=== PATIENT | female | born 1980 | race Caucasian/White ===

== ENCOUNTER → 2019-11-06 10:27 | Outpatient (CLI) | payer OTHER, SELFPAY ==
--- NOTE | ~2019-11-06 | MM_ITS ---
EXAMINATION: MM screening [facility] w noam HISTORY: Screening mammogram TECHNIQUE: Craniocaudal and mediolateral oblique 3-D tomosynthesis images were obtained and synthetic 2-D images were generated. CAD analysis was submitted and interpreted. COMPARISON: 11/01/2018 BREAST PARENCHYMAL COMPOSITION: There are scattered areas of fibroglandular density. FINDINGS: There is no evidence of suspicious mass, calcification, or architectural distortion to sugg est malignancy in either breast. There has been no suspicious interval change. IMPRESSION: 1. No mammographic evidence of malignancy. 2. Recommend routine screening mammography in one year. BI-RADS Category 1: Negative Reviewed, dictated and finalized at location A.
== END ==
PROVIDERS: PCP Internal Medicine; Visit Provider Obstetrics & Gynecology Gynecology
DX: Z12.31 Encounter for screening mammogram for malignant neoplasm of breast (principal)
CPT/HCPCS: 77063; 77067

== ENCOUNTER → 2021-01-03 16:20 | Outpatient (CLI) | payer OTHER, SELFPAY ==
--- NOTE | ~2021-01-03 | MM_ITS ---
EXAMINATION: MM screening [facility] w noam HISTORY: Screening mammogram TECHNIQUE: Craniocaudal and mediolateral oblique 3-D tomosynthesis images were obtained and synthetic 2-D images were generated. CAD analysis was submitted and interpreted. COMPARISON: , 11/01/2018 bilateral digital screening mammogram examinations BREAST PARENCHYMAL COMPOSITION: There are scattered areas of fibroglandular density. FINDINGS: There is no evidence of suspicious mass, calcification, or architectural distortion to sugg est malignancy in either breast. There has been no suspicious interval change. IMPRESSION: 1. No mammographic evidence of malignancy. 2. Recommend routine screening mammography in one year. BI-RADS Category 1: Negative Reviewed, dictated and finalized at location A.
== END ==
PROVIDERS: Visit Provider Obstetrics & Gynecology Gynecology
DX: Z12.31 Encounter for screening mammogram for malignant neoplasm of breast (principal)
CPT/HCPCS: 77063; 77067

== ENCOUNTER → 2022-02-07 15:13 | Outpatient (CLI) | payer OTHER, SELFPAY ==
--- NOTE | ~2022-02-07 | MM_ITS ---
EXAMINATION: MM screening [facility] BI w noam HISTORY: Screening TECHNIQUE: Craniocaudal and mediolateral oblique 3-D tomosynthesis images were obtained and synthetic 2-D images were generated. CAD analysis was submitted and interpreted. COMPARISON: Comparison to multiple prior studies sequentially, with oldest reviewed study dated 11/01. BREAST PARENCHYMAL COMPOSITION: There are scattered areas of fibroglandular density. FINDINGS: There is no evidence of suspicious mass, calcification, or architectural distortion to sugg est malignancy in either breast. There has been no suspicious interval change. IMPRESSION: 1. No mammographic evidence of malignancy. 2. Recommend routine screening mammography in one year. BI-RADS Category 1: Negative Reviewed, dictated and finalized at location A.
== END ==
PROVIDERS: PCP Internal Medicine; Visit Provider Obstetrics & Gynecology Gynecology
DX: Z12.31 Encounter for screening mammogram for malignant neoplasm of breast (principal)
CPT/HCPCS: 77063; 77067

== ENCOUNTER → 2023-04-25 15:06 | Outpatient (CLI) | payer OTHER, SELFPAY ==
--- NOTE | ~2023-04-25 | MM_ITS ---
EXAMINATION: MM screening [facility] w noam HISTORY: Screening mammogram TECHNIQUE: Craniocaudal and mediolateral oblique 3-D tomosynthesis images were obtained and synthetic 2-D images were generated. CAD analysis was submitted and interpreted. COMPARISON: 02/07/2022, 12/30/2020, 11/06/2019 bilateral screening mammogram examinations BREAST PARENCHYMAL COMPOSITION: There are scattered areas of fibroglandular density. FINDINGS: There is no evidence of suspicious mass, calcification, or architectural distortion to sugg est malignancy in either breast. There has been no suspicious interval change. IMPRESSION: 1. No mammographic evidence of malignancy. 2. Recommend routine screening mammography in one year. BI-RADS Category 1: Negative Reviewed, dictated and finalized at location A.
== END ==
PROVIDERS: PCP Obstetrics & Gynecology Gynecology; Visit Provider Obstetrics & Gynecology Gynecology
DX: Z12.31 Encounter for screening mammogram for malignant neoplasm of breast (principal)
CPT/HCPCS: 77063; 77067

== ENCOUNTER 2023-07-12 17:10 | Emergency (ER) | payer OTHER, SELFPAY ==
[2023-07-12 17:50] VITALS: BP 145/82; PULSE 81; RESP 16; O2SAT 100
--- NOTE | 2023-07-12 18:24 | ED.URI ---
HPI - URI/Sore Throat General Chief Complaint: Upper Respiratory Infection Stated Complaint: Chest Congestion/Cough Time Seen by Provider: 07/12/23 18:24 Source: patient, RN notes reviewed and old records reviewed Mode of arrival: ambulatory Limitations: no limitations History of Present Illness HPI Narrative: 42 year old female who presents to express care with complaints of cough, Has been taking Mucinex DM and using her inhaler without relief of cough. States cough is worse at night and is not resting well, cough initially started a couple of weeks ago but symptoms have gotten worse since Sunday. Patient reports that she feels tired and weak with some sinus congestion and drainage noted also. Patient reports that she has been taking Mucinex and using albuterol inhaler.. MD elicited complaint: cough, rhinorrhea and nasal congestion Pertinent past history: immunosuppression Onset (ago): week(s) (2) Consistency: progressively worsening Severity: moderate Able to tolerate fluids by mouth: Yes Treatments prior to arrival: other (Mucinex and albuterol inhaler) Related Data Home Medications Medication Instructions Recorded Confirmed albuterol sulfate 90 mcg/actuation 90 mcg inhalation Q4-6H PRN 07/12/23 07/12/23 aerosol inhaler Wheezing hydroxychloroquine 200 mg tablet 200 mg PO BID 07/12/23 07/12/23 norethindrone 1.5 mg-ethinyl 1 tablet PO DAILY 07/12/23 07/12/23 estradiol 30 mcg(21)/iron 75 mg(7) tablet (Maira Fe 1.5/30 (28)) Allergies Allergy/AdvReac Type Severity Reaction Status Date / Time No Known Allergies Allergy Verified 09/23/18 10:46 Review of Systems Review of Systems: CONSTITUTIONAL:Reports malaise, no chills, sweats, or fever. EYES: Denies visual changes, redness, or discharge. ENT: Reports rhinorrhea, congestion, sinus pain, no otalgia and no sore throat. CARDIOVASCULAR: Denies chest pain, palpitations, or edema. RESPIRATORY: Reports cough.? Denies dyspnea. GASTROINTESTINAL: Denies abdominal pain, nausea, vomiting, diarrhea SKIN: Denies rash or itching. MUSCULOSKELETAL: Denies myalgia. NEUROLOGIC: Denies headache. All systems reviewed & are unremarkable except as noted in HPI and below [facility] Past Medical History Medical History (Updated 07/16/23 @ 08:28 by Poonam Parr NP) History of sinus problem Rheumatoid arthritis Surgical History Surgical History (Updated 07/16/23 @ 08:28 by Poonam Parr NP) History of cholecystectomy History of lumpectomy of left breast [place] teeth extracted Social History Social History (Updated 07/16/23 @ 08:29 by Poonam Parr NP) Smoking status: Never smoker Alcohol intake: current Alcohol use details: social Substance use type: does not use Living arrangements: with family Gender identity (if verbalized by the patient): Female Comments At time of signature, agree with nursing past medical, surgical, social and family history. There is no relevant family history pertinent to the presenting complaint Exam Narrative: GENERAL: Well-appearing, well-nourished, and in no acute distress. HEAD: Normocephalic EYES: PERRLA, conjunctivae clear ENT: Nares clear, turbinates edematous and erythematous, clear discharge. Mucous membranes moist. TM pearly guardado with dull light reflex bilaterally; no tragal tenderness. Oropharynx erythematous without lesions. Tonsils not enlarged and without exudate, no drooling, no hoarseness, no trismus, uvula midline.post nasal drainage NECK: Supple. No lymphadenopathy CHEST: Clear to auscultation, breath sounds equal. No wheezing, rhonchi, rales, or stridor. No respiratory distress, speaks in full sentences.hacking cough SAO2 100% on room air HEART: Regular rate and rhythm. No murmur heard. SKIN: Warm, dry, no rash. NEURO: Alert and oriented x3. PSYCH: Normal mood and affect Course Course Emergency Course: Patient is aware of diagnosis, understands and
== END 2023-07-12 18:51 | disposition home or self-care (01) ==
PROVIDERS: Emergency Provider Registered Nurse; PCP Internal Medicine
DX: J32.4 Chronic pansinusitis (principal); R05.1 Acute cough; M06.9 Rheumatoid arthritis, unspecified
CPT/HCPCS: 99203; G0463

== ENCOUNTER 2024-04-28 13:02 | Outpatient (CLI) | payer OTHER, SELFPAY ==
--- NOTE | ~2024-04-28 | MM_ITS ---
EXAMINATION: MM screening [facility] BI w noam HISTORY: Screening mammogram TECHNIQUE: Craniocaudal and mediolateral oblique 3-D tomosynthesis images were obtained and synthetic 2-D images were generated. CAD analysis was submitted and interpreted. COMPARISON: 04/25/2023, 02/07/2022, 01/03/2021, 11/06/2019 BREAST PARENCHYMAL COMPOSITION:Not Dense. The breasts are almost entirely fatty FINDINGS: No suspicious mass, calcification, or architectural distortion are identified in either debbie ast to suggest malignancy. There has been no suspicious interval change. IMPRESSION: No mammographic evidence of malignancy. Recommend routine screening mammography in one year. BI-RADS Category 1: Negative Reviewed, dictated and finalized at location .
== END 2024-04-28 13:03 | disposition home or self-care (01) ==
LOC: MICIMG 13:03
PROVIDERS: PCP Obstetrics & Gynecology Gynecology; Visit Provider Obstetrics & Gynecology Gynecology
DX: Z12.31 Encounter for screening mammogram for malignant neoplasm of breast (principal)
CPT/HCPCS: 77063; 77067

== ENCOUNTER 2025-04-30 14:39 | Outpatient (CLI) | payer OTHER, SELFPAY ==
--- NOTE | ~2025-04-30 | MM_ITS ---
EXAMINATION: MM screening indigo BI w noam HISTORY: Screening TECHNIQUE: Craniocaudal and mediolateral oblique 3-D tomosynthesis images were obtained and synthetic 2-D images were generated. CAD analysis was submitted and interpreted. COMPARISON: 04/25/2023 BREAST PARENCHYMAL COMPOSITION: Not Dense: The breasts are almost entirely fatty. FINDINGS: There is no evidence of suspicious mass, calcification, or architectural distortion to suggest malignancy. There has been no suspicious interval change. IMPRESSION: 1. No mammographic evidence of malignancy. Recommend routine screening mammography in one year. BI-RADS Category 2: Benign finding(s) Reviewed, dictated and finalized at location Q. IMPRESSION: 1. No mammographic evidence of malignancy. Recommend routine screening mammogra phy in one year. BI-RADS Category 2: Benign finding(s)
--- OUTSIDE RECORDS SUMMARY | 2025-04-30 14:43 | XMS_ITS | Clinical Summary ---
Author Organization [facility] Address [address] [place] [address] Care Team Providers Care Chaperone Name Role Phone Svitlana Bee MD Primary Care Provider Source Comments [facility],non-owned Affiliates and Associated Physician Practices is amultiple site organization consisting of ambulatory clinics and hospital sitesin [place], [place], [place] and [place]. This disclosure is being madepursuant to the Care Everywhere program and may not contain all information available regarding this patient. Last updated 18.[facility] [employer] 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 Gender Identity Not on file Sexual Orientation Not on file Plan of Treatment Health Maintenance Due Date Last Done Comments COLOGUARD (AGES 45-75) - COL ON CA SCREENING 1978 COLON MONITORING 1978 COLONOSCOPY - COLON CA SCREENING 1978 CT COLONOGRAPHY - COLON CA SCREENING 1978 Colorectal Cancer Screening 1978 FIT - COLON CA SCREENING 1978 FLEX SIG - COLON CA SCREENING 1978 LIPID TESTING 1978 MAMMOGRAM 1978 HIV SCREENING 1993 HEPATITIS C SCREENING 10/04/1996 DTAP/TDAP/TD VACCINES (1 - Tdap) 1997 HEPATITIS B VACCINE (1 of 3 - 19+ 3-dose series) 1997 DEPRESSION SCREENING 08/13/2024 COVID-19 VACCINE (2023-2 5 season) 2025 INFLUENZA VACCINE (#1) 2025 ZOSTER VACCINE (1 of 2) 2028 HIB VACCINE Aged Out No longer eligi ble based on patient's age to complete this topic HPV VACCINE Aged Out No longer eligi ble based on patient's age to complete this topic MENINGOCOCCAL (Group B) VACC INE SHARED DECISION-MAKING Aged Out No longer eligibl e based on patient's age to complete this topic MENINGOCOCCAL GROUPS A/C/Y/W VACCINE Aged Out No longer eligible b ased on patient's age to complete this topic PNEUMOCOCCAL VACCINE Aged Out No long er eligible based on patient's age to complete this topic Insurance AETNA ANTH AETNA Care Teams Chaperone Relationship Specialty Start Date End Date Svitlana Bee MD [address] [id number] PCP - General Internal Medicine 09/18/14
--- OUTSIDE RECORDS SUMMARY | 2025-04-30 14:43 | XMS_ITS | Clinical Summary ---
Author Organization [facility] Address [address] [place] [address] Care Team Providers Care Surface Ship Usw Supervisor Name Role Phone Svitlana Bee MD Primary Care Provider Nia Hoyt MD Unavailable Fauzia Kahn MD Unavailable [phone] Allergies No known active allergies Medications ergocalciferol (VITAMIN D2) 50,000 unit capsule take 1 capsule by oral route every week 0 0 5 Active Additional Information Patient taking differently: (No dose reported), oral Weekly, Indications: Vitamin D Deficiency, takes on Sunday, Reported on 03/19/2025 hydroxychloroqu ine (PLAQUENIL) 200 mg tablet TAKE 1 TABLET BY ORAL ROUTE 2 TIMES EVERY DAY 180 tablet 1 8 Active DUEXIS 800-26.6 mg tablet Take 1 tablet by mouth daily as needed 0 8 Active nystatin powder Apply under abdomen BID prn 60 g 11 2 Active Junel 1.5/30, 21, 1.5-30 mg-mcg tablet per tablet Take 1 tablet by mouth daily 2 Active albuterol HFA (Ventolin HFA) 90 mcg/actuation inhalerIndicati ons:Cough Inhale 2 puffs every 4 (four) hours as needed for wheezing or shortness of breath 8 g 11 3 Active cyclobenzaprine (FLEXERIL) 10 mg tablet Take 1 tablet (10 mg total) by mouth 3 (three) times a day as needed for muscle spasms May cause drowsiness 20 tablet 4 Active Active Problems Problem Noted Date Diagnosed Date Hx of low-risk melanoma 12/31/2019 Assessment & Plan (03/22/2025 7:19 AM CDT): 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 Previously on humira, which has been d/c'd. Will avoid biologic DMARDs in the future. Follows w/ dermDr. Fauzia Assessment & Plan (03/27/2018 11:12 AM CDT): History of MM. Previously on humira, which has been d/c'd. Will avoid biologic DMARDs in the future. Follows w/ Dr. Fauzia menjivar Assessment & Plan (01/01/2018 11:23 AM CDT): Currently holding humira. Has been off for 6 weeks. Given this dx, will avoid biologics in the future. Carpal tunnel syndrome of right wrist 09/27/2017 Assessment & Plan (09/27/2017 11:06 AM GEAR AND SPLINE GRINDER): Median nerve enlargement noted on last u/s, intermittent symptoms that are compatible with CTS but may also have cervical radiculopathy. Will send to PT and also recommend splinting at night High risk medications (not anticoagulants) long- term use 03/29/2017 Assessment & Plan (03/27/2018 11:18 AM CDT): Will continue to monitor w/ routine labs Eye exam UTD. Assessment & Plan (01/01/2018 11:26 AM CDT): Will continue to monitor w/ routine labs Eye exam UTD Assessment & Plan (09/27/2017 10:28 AM GEAR AND SPLINE GRINDER): Normal eye exam 01/27 Neg quantiferon 12/27 Assessment & Plan (03/29/2017 10:42 AM CDT): Normal eye exam 01/27 Neg quantiferon 12/27 Rheumatoid arthritis of [facility] sites with negative rheumatoid factor 02/23/2017 Overview (01/01/2018): vectra 45 09/28, 32 in 06/28 neg rf, ccp, caryn, hlab27 mtx - abn labs Assessment & Plan (03/22/2025 7:19 AM CDT): Assessment & Plan (07/25/2018 1:12 PM GEAR AND SPLINE GRINDER): Follows with rheum, on plaquenil x 2-3 years, 200mg bid po. Macular OCT normal today, will get records release to determine when repeat HVF 10-2 needs to be done. No evidence of plaquenil related ocular toxicity. Assessment & Plan (03/27/2018 11:18 AM CDT): Patient disease activity is moderate on hcq bid. She felt better on humira but this was stopped d/t a h/o malignant melanoma. She is having more pain in her left elbow that I suspect is d/t lateral epicondylitis. She is TTP at her lateral epicondyle and a few MCPs. There is mild joint swelling on exam today. Vectra was 45 in 09/28 and 32 in 06/28. Previous serologies hsowed neg RF, ccp, caryn, and [id number]. We repeated an avise in 12/28 which was negative. Her hand/wrist us in 06/29 showed evidence of mild synovitis w/ effusions, synovial thickening, and mild PD Patient is to continue hcq. Will give her samples of duexis and pennsaid. Discussed possibly starting arava if she continues to have joint pain and swelling. Will check routine labs today Follow up in 3 mo, sooner if needed Assessment & Plan (01/01/2018 1:03 PM CDT): Patient disease activity is low on hcq bid . Patient is to continue hcq. Will remain off humira. Will avoid biologics in the future d/t recent dx of melanoma. Will check routine labs at next office visit. Recent labs stable. Her ALT was elevated, but at baseline. Will check ESR and CRP today. Will also repeat AVISE to evaluate for change in serologies. Follow up in 3 mo, sooner if needed. Assessment & Plan (09/27/2017 5:30 PM GEAR AND SPLINE GRINDER): cdai = 5 Doing well on humira and plaquenil. vectra in 03/29 was 33 (was 45 in 09/28). R hand u/s in 06/29 showed mild synovitis and mild doppler, also median nerve enlargement. She has also been on a gluten free diet and notes big improvements. Continue humira, plaquenil. Recommend wrist splints for CTS. F/u 3 months. Assessment & Plan (06/28/2017 10:34 AM GEAR AND SPLINE GRINDER): cdai = 8 Doing well on humira and plaquenil. vectra in 03/29 was 33 (was 45 in 09/28). Her repeat hand u/s in 11/27 was overall mild synovitis but grade 2 effusions with doppler in the R wrist. She has also been on a gluten free diet and notes big improvements. Continue humira, plaquenil. F/u 3 months. Assessment & Plan (03/29/2017 11:04 AM CDT): cdai = 1 Tolerating humira and has noted improvement. vectra went from 45 to 32. Recheck today. Her repeat hand u/s in 11/27 was overall mild synovitis but grade 2 effusions with doppler in the R wrist. She has also been on a gluten free diet and notes big improvements. Continue humira, plaquenil. Will repeat ultrasound before next visit. F/u 3 months. Body mass index 40+ - severely obese 02/22/2013 Overview (11/17/2016): Body mass index 40.0-44.9, adult Resolved Problems Problem Noted Date Diagnosed Date Resolved Date Celiac disease 12/31/2019 01/03/2021 Right lateral epicondylitis 06/26/2019 12/31/2019 Assessment & Plan (06/26/2019 10:24 AM GEAR AND SPLINE GRINDER): Clinical exam correlates with epicondylitis. Recommending daily Duexis, Voltaren gel, will consider adding on tapering corticosteroids w/o relief in 3-5 days. Application of heat, bracing and stretching exercises advised the interim. Typical time frame to expect relief provided, otherwise will F/U in office to consider further diagnostics or consultation w/o improvement sx. Lateral epicondylitis of left elbow 03/27/2018 06/26/2019 Assessment & Plan (03/27/2018 12:49 PM CDT): Limit excerbating activities Will send in rx for pennsaid for topical nsaid application Instructed to use tennis elbow brace, which she already has at home Will give samples of duexis Neck pain 09/27/2017 12/31/2019 Assessment & Plan (09/27/2017 11:05 AM GEAR AND SPLINE GRINDER): Neck pain and stiffness and occasional numbness in arms. Was treated for bulging disc in the past. Will send to PT Acute bilateral low back claudia n without sciatica 06/28/2017 12/24/2018 Assessment & Plan (09/27/2017 5:30 PM GEAR AND SPLINE GRINDER): Better after PT. xrays showed mild lumbar djd. Assessment & Plan (06/28/2017 10:32 AM GEAR AND SPLINE GRINDER): Some morning stiffness and also has pain after standing. She benefitted from PT last year so will order again. Will also repeat xrays of SI jts, hips, lumbar spine to evaluate for inflammatory disease. Calculus of gallbladder with out cholecystitis without obstruction 04/11/2017 12/20/2017 Assessment & Plan (06/28/2017 10:27 AM GEAR AND SPLINE GRINDER): To have cholecystectomy next month. Hold humira 2 weeks before and 2 weeks after Encounters Date Type Department Care Team Description 03/19/2025 11:00 AM CDT Office Visit [facility] at [address] [place] [address] Svitlana Bee MD Annual physical exam (Primary Dx); Hx of low-risk melanoma; Rheumatoid arthritis of multiple sites with negative rheumatoid factor (HCC); Morbid obesity with BMI of 50.0-59.9, adult (HCC) from Last 3 Months Immunizations Immunization Administration Dates Next Due Hep A, Adult 07/13/2000 Influenza, Quadrivalent, Deanne l Culture-based MDCK, Preservative Free, Antibiotic Free, Intramuscular 06/12/2017 Influenza, Quadrivalent, Spl it, Intramuscular 06/06/2019 Influenza, Quadrivalent, Spl it, Preservative Free, Intramuscular 06/06/2019,06/22/2018 Influenza, Trivalent, Preser vative Free, Intramuscular 05/12/2016 Influenza, Unspecified 06/04/2023(Deferr ed: Patient Refused),10/17/2022(Deferred: Patient Refused),03/22/2022(Deferred: Patient Refused),03/13/2022(Deferred: Patient Refused),05/13/2021(Deferred: Patient Refused),08/31/2020(Deferred: Patient Refused),05/13/2020(Deferred: Patient Refused),03/13/2020(Deferred: Patient Refused),06/06/2019,05/16/2019(Deferre d: Patient ill today),05/27/2018(Deferred: Patient Refused),05/22/2017 Tdap 10/19/2023 Surgical History Surgery Date Site/Laterality Comments OTHER SURGICAL HISTORY 08/13/1998 - 08/12/1999 Mass Removed SECTION 08/13/2010 - 08/12/2011 section OTHER SURGICAL HISTORY 08/13/1998 - 08/12/1999 Breast lump: Lumpectomy OTHER SURGICAL HISTORY d &c: out pt surg BREAST LUMPECTOMY Left CHOLECYSTECTOMY 07/27/2017 Laparoscopic cholecystectomy SECTION Medical History Medical History Date Comments Hx Other Medical Fibroadenoma Hx Other Medical 01-[employer] Hx Other Medical 1998 Mass removed fr om L breast Hx Other Medical Breast lump; La terality: left Hx Other Medical 2012 d &c Hx Other Medical c section 2010; Comments: [facility] 09/18/2014 - Hx Other Medical breast mass rem christiana 1998; Comments: [facility] 09/18/2014 - Arthritis Rheumatoid arthr itis Rheumatoid arthritis (HCC) Family History Medical History Relation Name Comments Other Brother 2 Alive and well; Diabetes type I Father Diabetes amna litus type 1; Diabetes type II Father Diabetes -T ype II; /Diabetes mellitus type 2; Hypertension Father Hypertension; Other Father Alive and well; /Alive and well; Prostate cancer Father Cancer -pros quezada; /Cancer, prostate; Other Mother Pneumonia Mother Prostate cancer Other 1 Family histo ry of Cancer, prostate; Diabetes Other 2 Family history of Diabetes mellitus; Relation Name Status Comments Brother 1 Alive Brother 2 Father Alive Mother Alive Other 1 Other 2 Social History Tobacco Use Types Packs/Day Years Used Date Smoking Tobacco: Never Smokeless Tobacco: Never Alcohol Use Standard Drinks/Week Comments Yes 2 (1 standard drink = 0.6 oz pur e alcohol) occasionally AUDIT-C Answer Date Recorded Q1: How often do you have a drink containing alc ohol? Monthly or less 09/24/2024 Q2: How many drinks containi ng alcohol do you have on a typical day when you are drinking? 1 or 2 09/24/2024 Q3: How often do you have si x or more drinks on one occasion? Monthly 09/24/2024 PHQ-2 Answer Date Recorded PHQ-2 Total Score (If total score is 3 or more points, staff should administer the PHQ-9) 0 03/19/2025 Comments No Sex and Gender Information Value Date Recorded Sex Assigned at Not on file Legal Sex Female 6:16 AM GEAR AND SPLINE GRINDER Gender Identity Not on file Sexual Orientation Not on file Obstetrics History Last Filed Vital Signs Vital Sign Reading Time Taken Comments Blood Pressure 122/70 03/19/2025 11:00 AM CDT Pulse 84 03/19/2025 11:00 AM CDT Temperature 36.6 C (97.9 F) 03/19/2025 11:00 AM CDT Respiratory Rate 16 03/19/2025 11:00 AM CDT Oxygen Saturation 99% 03/19/2025 11:00 AM CDT Inhaled Oxygen Concentration - - Weight 124.3 kg (274 lb) 03/19/2025 11:00 AM CDT Height 157.5 cm (5' 2) 03/19/2025 11:00 AM CDT Body Mass Index 50.12 03/19/2025 11:00 AM CDT Plan of Treatment Health Maintenance Due Date Last Done Comments Colon Cancer Screening-Colonoscopy 1978 Hepatitis B Screening 1996 Pneumococcal vaccine <65 (1 of 2 - PCV) 1997 Zoster Vaccine (1 of 2) 1997 Influenza Vaccine (#1) 2025 9, 06/06/2019, 06/06/2019, Additional history exists Breast Cancer Screening-Mammogram 04/28/2025 04/28/2024, 02/07/2022, 11/06/2019, Additional history exists Cervical Cancer Screening 01/07/20262024, 12/27/2022, 09/18/2019, Additional history exists Depression Screening 03/19/2026 03/19/2025, 03/24/2024, 01/24/2024, Additional history exists Regular Well Visit/Exam 18-64 03/19/2026 03/19/2025, 03/24/2024, 03/23/2023, Additional history exists DTaP/Tdap/Td Vaccine (2 - Td or Tdap) 10/18/2033 10/19/2023 Hepatitis C Screening Completed 09/18/2014 HPV Vaccines Aged Out No longer eligi ble based on patient's age to complete this topic Procedures Procedure Name Priority Date/Time Associated Diagnosis Comments LIPID PANEL Routine 03/11/2025 9:40 AM CDT Annual physical exam COMPREHENSIVE METABOLIC PANEL Routine 03/11/2025 9:40 AM CDT Annual physical exam HM PAP SMEAR WITH HPV Routine 01/07/2025 SCREENING MAMMOGRAM BILATERAL W KEVIN Schedule Routine, Read Routine (OP Routine) 04/28/2024 HEPATITIS C ANTIBODY Routine 09/18/2014 12:41 PM GEAR AND SPLINE GRINDER from Last 3 Months or Most Recently Relevant to Health Maintenance Results * Lipid panel (03/11/2025 9:40 AM CDT) Cholesterol 160 <200 mg/dL [facility] HDL 63 > OR = 50 mg/dL [facility] Triglycerides 71 <150 mg/dL [facility] LDL 82 mg/dL (calc) [facility] Comment: Reference range: <100 Desirable range <100 mg/dL for primary prevention; <70 mg/dL for patients with CHD or diabetic patients with > or = 2 CHD risk factors. LDL-C is now calculated using the Alpesh-Fields calculation, which is a validated novel method providing better accuracy than the Friedewald equation in the estimation of LDL-C. Alpesh WELLS et al. JABIER. 2013;310(19): 7546-9414 (http://education.Vidyo/faq/VOG376) Chol/HDL ratio 2.5 <5.0 (calc) [facility] Non-HDL, (LDL+VLDL) 97 <130 mg/dL (calc) [facility] Comment: For patients with diabetes plus 1 major ASCVD risk factor, treating to a non-HDL-C goal of <100 mg/dL (LDL-C of <70 mg/dL) is considered a therapeutic option. Blood 03/11/2025 9:40 AM CDT 03/11/2025 9:42 AM CDT Narrative [facility] - 03/12/2025 2:34 AM CDT FASTING:YES FASTING: YES us Svitlana Bee MD LAB BLOOD ORDERABLES Fi nal Result [facility] [address] [place] [address] * (ABNORMAL) Comprehensive metabolic panel (03/11/2025 9:40 AM CDT) [facility] Glucose 94 65 - 99 mg/dL [facility] Comment: Fasting reference interval BUN 14 7 - 25 mg/dL [facility] Creatinine 0.76 0.50 - 0.99 mg/dL [facility] eGFR 98 > OR = 60 mL/min/1.7 3m2 [facility] BUN/creat ratio SEE NOTE: 6 (calc) [facility] Comment: Not Reported: BUN and Creatinine are within reference range. Sodium 138 135 - 146 mmol/L [facility] Potassium, pl 4.3 3.5 - 5.3 mmol/L [facility] Chloride 105 98 - 110 mmol/L [facility] CO2 24 20 - 32 mmol/L [facility] Calcium 9.2 8.6 - 10.2 mg/dL [facility] Protein, sr 6.9 6.1 - 8.1 g/dL [facility] Albumin 4.4 3.6 - 5.1 g/dL [facility] GLOBULIN 2.5 1.9 - 3.7 g/dL (calc) [facility] Alb/glob ratio 1.8 1.0 - 2.5 (calc) [facility] Bilirubin, total 0.8 0.2 - 1.2 mg/dL [facility] Alk phos 52 31 - 125 U/L [facility] AST 27 10 - 35 U/L [facility] ALT (SGPT) 54(H) 6 - 29 U/L [facility] Blood 03/11/2025 9:40 AM CDT 03/11/2025 9:42 AM CDT Narrative [facility] - 03/12/2025 2:34 AM CDT FASTING:YES FASTING: YES Svitlana Bee MD LAB BLOOD ORDERABLES Fi nal Result [facility] [address] [place] [id number] * HM PAP SMEAR WITH HPV (01/07/2025) us Generic External Data Provider HEALTH MAINTENANC E Final Result * Screening Mammogram Bilateral W Kevin (04/28/2024) Anatomical Region Laterality Modality Breast Bilateral Mammography Generic External Data Provider IMG MAMMO PROCEDU RES Final Result * Hepatitis C antibody (09/18/2014 12:41 PM GEAR AND SPLINE GRINDER) SIGNAL TO CUT-OFF 0.04 <1.00 [facility] HISTORICAL RESULTS Comment: Test performed at [facility] [id number] [id number] Director: JEB HOWE DO,MPH Hep C Ab NON-REACT GEORGE NON-REACT GEORGE [facility] HISTORICAL RESULTS 09/18/2014 12:4 1 PM GEAR AND SPLINE GRINDER us Nia Hoyt MD LAB MICROBIOLOGY - GENERAL ORDER LIZBETH Final Result [facility] HISTORICAL RESULTS from Last 3 Months or Most Recently Relevant to Health Maintenance [facility] [facility] Care Teams Surface Ship Usw Supervisor Relationship Specialty Start Date End Date Svitlana Bee MD PCP - General 11/10/16 [place] [id number] [id number] Rheumatology 06/28/17 [place] [id number] [address] Referring Physician Dermatology 03/27/18
== END 2025-04-30 14:40 | disposition home or self-care (01) ==
LOC: CHSIMG 14:41
PROVIDERS: PCP Obstetrics & Gynecology Gynecology; Visit Provider Obstetrics & Gynecology Gynecology
DX: Z12.31 Encounter for screening mammogram for malignant neoplasm of breast (principal)
CPT/HCPCS: 77063; 77067